=== PATIENT | female | born 1960 | race Caucasian/White ===

== ENCOUNTER 2019-01-14 18:26 | Inpatient (IN) ==
[2019-01-14] MEDS ORDERED: 0.9 % Sodium Chloride 500 ML IVC ONE (20:00)
[2019-01-14 20:39] LABS: Basophils % 0.1 %; Hematocrit 24.4 % (35.3-44.9); Hemoglobin 7.2 g/dL (11.5-15.4); Immature Granulocytes % 0.4 % (0-4); Lymphocytes # 0.5 K/mcL (0.6-4.6); Lymphocytes % 4.9 %; Mean Corpuscular HGB Conc 29.5 g/dL (31.6-35.5); Mean Corpuscular Hemoglobin 31.9 pg (28.0-33.3); Mean Platelet Volume 11.4 fL (9.4-12.4); Monocytes # 0.7 K/mcL (0.0-1.3); Monocytes % 7.5 %; Neutrophils # 8.6 K/mcL (1.6-8.9); Platelet Count 143 K/mcL (140-400); Red Blood Count 2.26 M/mcL (3.82-4.97); Red Cell Distribution Width 16.3 % (11.5-14.5); Segmented Neutrophils % 87.1 %
[2019-01-14] MEDS ORDERED: Ipratropium/Albuterol Neb 3 ML IH ONE (20:53)
[2019-01-14 21:03] LABS: Alanine Aminotransferase 18 Units/L (7-52); Albumin 3.3 g/dL (3.5-5.7); Albumin/Globulin Ratio 1.1 (1.1-2.2); Alkaline Phosphatase 82 Units/L (34-104); Aspartate Amino Transferase 65 Units/L (13-39); BUN/Creatinine Ratio 18 (6-26); Bilirubin,Direct 0.1 mg/dL (0.0-0.2); Bilirubin,Indirect 0.4 mg/dL (0.0-1.2); Bilirubin,Total 0.5 mg/dL (0.3-1.0); Blood Urea Nitrogen 14 mg/dL (8-23); Calcium 8.4 mg/dL (8.6-10.3); Carbon Dioxide 24 mEq/L (23-29); Chloride 101 mEq/L (98-107); Glucose 151 mg/dL (70-105); INR 1.2; Osmolality,Calculated 283 (280-300); Potassium 3.5 mEq/L (3.5-5.1); Prothrombin Time 13.7 Seconds (9.4-12.1); Sodium 135 mEq/L (136-145); Total Protein 6.3 g/dL (6.4-8.9); Troponin I < 0.03 ng/mL (< 0.04); eGFR For Non-African Americans > 60 (> 60)
--- NOTE | 2019-01-14 21:14 | Emergency Department Note ---
Disposition Clinical Impression: Weakness Anemia Qualifiers: Anemia type: unspecified type Qualified Code(s): D64.9 - Anemia, unspecified Fatigue Qualifiers: Fatigue type: unspecified Qualified Code(s): R53.83 - Other fatigue Disposition: Admitted As Inpatient Condition: Good Forms: ED Satisfaction Letter General Adult HPI - General Chief complaint: ED Recheck/Abnormal Lab/Rx Stated complaint: ABNORMAL LABS Time Seen by Provider: 01/14/19 19:55 Source: patient Limitations: no limitations Nursing Notes Reviewed: Yes Vital Signs Reviewed: Yes - History of Present Illness HPI Narrative: Patient with significant past medical history including diabetes, COPD on oxygen at home with a history of lung cancer in remission as well as rectal cancer reportedly in remission presenting to the emergency department for low hemoglobin and generalized weakness. Patient states the last week she began feeling weak. She has not noticed any blood within her stool. She has not had any vomiting. She is not had any abdominal pain. She has not undergone any recent chemoradiation. She has had occasional lightheadedness with feeling like she may pass out but has not had any falls and has not hit her head. Patient is on aspirin but no other blood thinners. Patient had a colonoscopy in 2018 with polyps. Pain Scale: 6 - Related Data Home Medications Medication Instructions Recorded Confirmed RX: Albuterol Neb [Proventil Neb] 2.5 mg IH Q4HR PRN 06/07/16 02/22/18 RX: Albuterol Sulfate [Albuterol 2 puff IH Q4HR PRN 06/07/16 02/22/18 Inhaler] RX: Aspirin Enteric Coated 81 mg PO DAILY 06/07/16 02/22/18 [Aspirin EC] RX: Carvedilol 3.125 mg PO BID 06/07/16 02/22/18 RX: Ergocalciferol (VITAMIN D2) 50,000 unit PO COOPER 06/07/16 02/22/18 [Vitamin D2 (50,000 UNIT)] RX: Ferrous Sulfate 325 mg PO BID 06/07/16 02/22/18 RX: Furosemide [Lasix] 20 mg PO DAILY 06/07/16 02/22/18 RX: Insulin Glargine,Hum.rec.anlog 25 unit SQ BID 06/07/16 02/22/18 [Lantus Solostar] RX: Insulin LISPRO [Humalog] 0 unit SQ TIDWM 06/07/16 02/22/18 RX: Omeprazole [PriLOSEC] 40 mg PO DAILY 06/07/16 02/22/18 RX: Potassium Citrate [Urocit-K] 10 meq PO DAILY 06/07/16 02/22/18 RX: Sertraline [Zoloft] 50 mg PO DAILY 06/07/16 02/22/18 FentaNYL PATCH [Duragesic] 50 mcg TD Q72H 02/22/18 02/22/18 Levothyroxine [Synthroid] 150 mcg PO DAILY 02/22/18 02/22/18 Lovastatin [Mevacor] 20 mg PO HS 02/22/18 02/22/18 OxyCODONE/APAP 10/325 [Percocet 1 tab PO BID PRN 02/22/18 02/22/18 10/325 MG] Pregabalin [Lyrica] 100 mg PO BID 02/22/18 02/22/18 Quetiapine Fumarate [SEROquel] 100 mg PO HS 02/22/18 02/22/18 RX: Cyclobenzaprine HCl 5 mg PO TID PRN 02/22/18 02/22/18 Roflumilast [Daliresp] 500 mcg PO DAILY 02/22/18 02/22/18 Allergies Allergy/AdvReac Type Severity Reaction Status Date / Time No Known Allergies Allergy Verified 02/22/18 07:55 All systems ED: reviewed and negative except as stated. Review of Systems: As Per HPI Constitutional: Denies: fever, chills ENT ED: Denies: congestion Cardiovascular: Denies: chest pain Respiratory: Denies: cough Gastrointestinal: Denies: abdominal pain, nausea Musculoskeletal: Denies: back pain Integumentary: Denies: rash, abrasion Endocrine: Reports: fatigue Past Medical History - Past Medical History Medical history: Reports: arthritis, cancer, COPD, diabetes, GERD, other Surgical history: Reports: appendectomy, cholecystectomy, colectomy, hysterectom y, orthopedic, other, other Psychiatric history: Reports: no psych history - Social History Smoking Status: Never smoker Smokeless Tobacco Status: No Alcohol use: Reports: none Drug use: Reports: none Physical Exam General: Well appearing, nontoxic, no acute distress Head: Normocephalic Atraumatic Eyes: PERRL, EOMI ENT: Airway patent, no stridor Neck: supple, no meningismus Chest: Lungs clear to auscultation bilateral Cardiac: Regular rate and rhythm, no murmurs, rubs or gallops Abdomen: soft, nontender, nondistended; no guarding, rebound, or tenderness to percussion : No bright red blood or dark tarry stool noted. No hemorrhoids. Musculoskeletal: Calves symmetric, nontender. Skin: No rash, normal skin tone. Neuro: Alert and Oriented to person, place, and time; No obvious focal deficit. - General Limitations: no limitations General appearance: alert, in no apparent distress Course - Reevaluation(s) Reevaluation #1: Hemoglobin of 7.2. Discussed hospitals. Will transfuse unit. Repeat hemoglobin. Discussed with patient. Patient understands need for further workup and monitoring. Agreable to stay. DuoNeb given secondary to COPD. Patient does have some associated mild wheezing. Patient states she does not feel more short of breath in usual. - Consultations Consultation #1: Discussed with hospitalist. Pt accepted. Vital Signs Temperature 99.6 F 01/14/19 19:00 Pulse Rate 85 01/14/19 19:00 Respiratory Rate 22 01/14/19 19:00 Blood Pressure 103/58 01/14/19 19:00 O2 Sat by Pulse Oximetry 79 01/14/19 19:00 Temperature 99.6 F 01/14/19 19:00 Pulse Rate 81 01/14/19 21:32 Respiratory Rate 16 01/14/19 21:32 Blood Pressure 99/45 01/14/19 21:32 O2 Sat by Pulse Oximetry 92 01/14/19 21:32 Oxygen Delivery Oxygen Delivery Room Air Medical Decision Making - Medical Records Medical records reviewed: Yes I reviewed the patient's medical records. - Lab Data Lab results reviewed: Yes I reviewed the patient's lab results. Result diagrams: 01/14/19 20:26 01/14/19 20:26 Lab Results 01/14/19 01/14/19 01/14/19 Range/Units 20:26 20:26 20:26 WBC 9.9 (4.3-11.1) K/mcL RBC 2.26 L (3.82-4.97) M/mcL Hgb 7.2 L (11.5-15.4) g/dL Hct 24.4 L (35.3-44.9) % MCV 108.0 H (83.0-100.0) fL MCH 31.9 (28.0-33.3) pg MCHC 29.5 L (31.6-35.5) g/dL RDW 16.3 H (11.5-14.5) % Plt Count 143 (140-400) K/mcL MPV 11.4 (9.4-12.4) fL Immature Gran % 0.4 (0-4) % Seg Neutrophils % 87.1 % Lymphocytes % 4.9 % Monocytes % 7.5 % Eosinophils % 0.0 % Basophils % 0.1 % Neutrophils # 8.6 (1.6-8.9) K/mcL Lymphocytes # 0.5 L (0.6-4.6) K/mcL Monocytes # 0.7 (0.0-1.3) K/mcL Eosinophils # 0.0 (0.0-0.6) K/mcL Basophils # 0.0 (0.0-0.2) K/mcL PT 13.7 H (9.4-12.1) Seconds INR 1.2 Sodium 135 L (136-145) mEq/L Potassium 3.5 (3.5-5.1) mEq/L Chloride 101 (98-107) mEq/L Carbon Dioxide 24 (23-29) mEq/L BUN 14 (8-23) mg/dL Creatinine 0.79 (0.60-1.20) mg/dL Est GFR ( Amer) > 60 (> 60) Est GFR (Non-Af Amer) > 60 (> 60) BUN/Creatinine Ratio 18 (6-26) Glucose 151 H (70-105) mg/dL Calculated Osmolality 283 (280-300) Calcium 8.4 L (8.6-10.3) mg/dL Total Bilirubin 0.5 (0.3-1.0) mg/dL Direct Bilirubin 0.1 (0.0-0.2) mg/dL Indirect Bilirubin 0.4 (0.0-1.2) mg/dL AST 65 H (13-39) Units/L ALT 18 (7-52) Units/L Alkaline Phosphatase 82 (34-104) Units/L Troponin I < 0.03 (< 0.04) ng/mL Serum Total Protein 6.3 L (6.4-8.9) g/dL Albumin 3.3 L (3.5-5.7) g/dL Globulin 3.0 (2.4-3.5) g/dL Albumin/Globulin Ratio 1.1 (1.1-2.2) Blood Type Antibody Screen Crossmatch 01/14/19 Range/Units 20:26 WBC (4.3-11.1) K/mcL RBC (3.82-4.97) M/mcL Hgb (11.5-15.4) g/dL Hct (35.3-44.9) % MCV (83.0-100.0) fL MCH (28.0-33.3) pg MCHC (31.6-35.5) g/dL RDW (11.5-14.5) % Plt Count (140-400) K/mcL MPV (9.4-12.4) fL Immature Gran % (0-4) % Seg Neutrophils % % Lymphocytes % % Monocytes % % Eosinophils % % Basophils % % Neutrophils # (1.6-8.9) K/mcL Lymphocytes # (0.6-4.6) K/mcL Monocytes # (0.0-1.3) K/mcL Eosinophils # (0.0-0.6) K/mcL Basophils # (0.0-0.2) K/mcL PT (9.4-12.1) Seconds INR Sodium (136-145) mEq/L Potassium (3.5-5.1) mEq/L Chloride (98-107) mEq/L Carbon Dioxide (23-29) mEq/L BUN (8-23) mg/dL Creatinine (0.60-1.20) mg/dL Est GFR ( Amer) (> 60) Est GFR (Non-Af Amer) (> 60) BUN/Creatinine Ratio (6-26) Glucose (70-105) mg/dL Calculated Osmolality (280-300) Calcium (8.6-10.3) mg/dL Total Bilirubin (0.3-1.0) mg/dL Direct Bilirubin (0.0-0.2) mg/dL Indirect Bilirubin (0.0-1.2) mg/dL AST (13-39) Units/L ALT (7-52) Units/L Alkaline Phosphatase (34-104) Units/L Troponin I (< 0.04) ng/mL Serum Total Protein (6.4-8.9) g/dL Albumin (3.5-5.7) g/dL Globulin (2.4-3.5) g/dL Albumin/Globulin Ratio (1.1-2.2) Blood Type A NEGATIVE Antibody Screen NEGATIVE Crossmatch See Detail
[2019-01-15] MEDS ORDERED: Naloxone 0.4 MG/ML INJ IVP PRN (03:43)
[2019-01-15] MEDS ORDERED: Ondansetron 4 MG/2 ML VIAL IVP ONE (03:54)
--- NOTE | 2019-01-15 04:13 | Internal Med History&Physical ---
<Rito Mcfadden P - Last Filed: 01/15/19 03:54> Date of Encounter: 01/15/19 Time of Encounter: 03:15 Internal Medicine - H&P: HPI Chief complaint: Weakness, Abnormal Labs Admitted From: Home Plans for Post Hospital Care: Home History of present illness: Ms. Hicks is a 58 year old female with past medical history significant for hypertension, hyperlipidemia, CHF, COPD, diabetes, GERD, lung cancer in r emission, colon cancer in remission, anxiety, and depression who presents for low hemoglobin per PCP and home health nurse, generalized weakness, lightheadedness, productive cough with green sputum, nausea, chills, and achiness for past four days. Patient is unsure if she has had a fever at home as she does not have a thermometer. Reports PCP advised her of low hemoglobin around 2 weeks ago but she did not seek treatment, blood was redrawn by home health nurse recently and advised to come to ER due to persistent low hemoglobin. PCP and home health hemoglobins were reported at 6.7 and 6.9 per patient. Denies chest pain, shortness of breath worse than baseline, abdominal pain, blood loss, vomiting, bowel or bladder changes. Last bowel movement was today and reportedly normal per patient. Denies any tobacco, alcohol, or drug use. No recent travel or medication changes. Reports recent ill contacts with respiratory symptoms at a birthday alliance party. Wears 2lpm nasal canula continuously at home. Checks blood sugars regularly at home and reports they have been averaging in the 110's. Follows regularly with PCP about every 3 months with last visit around 2 weeks ago. Also follows regularly with pain management monthly for chronic pain related to arthritis and SI joint dysfunction with last normal follow-up last month. Also follows with pulmonary every 3 months with last normal follow up last month as well. Has history of colon cancer with colectomy and lung cancer with lobectomy along with radiation and chemotherapy, both in remission for 9 years. Last colonoscopy was completed in April 2018 where 3 polyps were removed, continues to follow up with GI for continued monito ring. Past Med Surg Social Fam HX - Past Medical History Medical history: arthritis, cancer, CHF, COPD, diabetes, GERD, hyperlipidemia, hypertension, other Additional medical history: rectal cancer, lung cancer Psychiatric history: anxiety, depression - Past Surgical History Surgical History: appendectomy, cholecystectomy, colectomy, hysterectomy, orthopedic, other, other Additional surgical history: bladder tuck,hernia repair,l shoulder rotator - Social History Smoking Status: Never smoker Smokeless Tobacco Status: No Alcohol use: none Drug use: none - Family History Mother Living Status: Age at : 43 Hx Family Cancer: Yes (metastatic) Father Living Status: Age at : 46 Hx Family Cancer: Yes (metastatic) Internal Medicine - H&P: Meds Albuterol Neb [Proventil Neb] 2.5 mg IH Q4HR PRN 06/07/16 [History] Albuterol Sulfate [Albuterol Inhaler] 2 puff IH Q4HR PRN 06/07/16 [History] Aspirin Enteric Coated [Aspirin EC] 81 mg PO DAILY 06/07/16 [History] Carvedilol 3.125 mg PO BID 06/07/16 [History] Ergocalciferol (VITAMIN D2) [Vitamin D2 (50,000 UNIT)] 50,000 unit PO COOPER 06/07/16 [History] Ferrous Sulfate 325 mg PO BID 06/07/16 [History] Furosemide [Lasix] 20 mg PO DAILY 06/07/16 [History] Insulin Glargine,Hum.rec.anlog [Lantus Solostar] 25 unit SQ BID 06/07/16 [History] Insulin LISPRO [Humalog] 0 unit SQ TIDWM 06/07/16 [History] Omeprazole [PriLOSEC] 40 mg PO DAILY 06/07/16 [History] Potassium Citrate [Urocit-K] 10 meq PO DAILY 06/07/16 [History] Sertraline [Zoloft] 50 mg PO DAILY 06/07/16 [History] Cyclobenzaprine HCl 5 mg PO TID PRN 02/22/18 [History] FentaNYL PATCH [Duragesic] 50 mcg TD Q72H 02/22/18 [History] Levothyroxine [Synthroid] 150 mcg PO DAILY 02/22/18 [History] Lovastatin [Mevacor] 20 mg PO HS 02/22/18 [History] OxyCODONE/APAP 10/325 [Percocet 10/325 MG] 1 tab PO BID PRN 02/22/18 [History] Pregabalin [Lyrica] 100 mg PO BID 02/22/18 [History] Quetiapine Fumarate [SEROquel] 100 mg PO HS 02/22/18 [History] Roflumilast [Daliresp] 500 mcg PO DAILY 02/22/18 [History] Atorvastatin [Lipitor] 40 mg PO HS 01/15/19 [History] Allergy/AdvReac Type Severity Reaction Status Date / Time No Known Allergies Allergy Verified 02/22/18 07:55 All Systems PM: A 10-system review of systems was performed and is negative for pertinent findings except as documented above in the HPI. - Constitutional Vitals: Temp Pulse Resp BP Pulse Ox 99.3 F 80 15 112/67 90 01/15/19 03:05 01/15/19 03:05 01/15/19 03:05 01/15/19 03:05 01/15/19 03:05 Exam: General: Alert and oriented. Skin:Normal color, no rash, no lesions. HEENT:Pupils equal, round and reactive. Cardiovascular:Heart sounds distant, no rubs, murmurs or gallops. No JVD. Pulse regular. Lungs:Breath sounds decreased, wheezes and crackles noted. Abdomen:Soft, non-tender, no rigidity. Extremities:No deformity, no edema or tenderness, no joint swelling or clubbing. Neurological:Normal cognition and motor skills. Pulses:Carotid and radial pulses normal +2. Rest of the physical exam is non contributory. Internal Med - H&P Results - Labs CBC & Chem 7: 01/14/19 20:26 01/14/19 20:26 Labs: Short CBC 01/14/19 Range/Units 20:26 WBC 9.9 (4.3-11.1) K/mcL Hgb 7.2 L (11.5-15.4) g/dL Hct 24.4 L (35.3-44.9) % Plt Count 143 (140-400) K/mcL Neutrophils # 8.6 (1.6-8.9) K/mcL BMP 01/14/19 20:26 Sodium 135 L Potassium 3.5 Chloride 101 Carbon Dioxide 24 BUN 14 Creatinine 0.79 Glucose 151 H Calcium 8.4 L Cardiac Enzymes 01/14/19 Range/Units 20:26 Troponin I < 0.03 (< 0.04) ng/mL Liver Function 01/14/19 Range/Units 20:26 Total Bilirubin 0.5 (0.3-1.0) mg/dL Direct Bilirubin 0.1 (0.0-0.2) mg/dL AST 65 H (13-39) Units/L ALT 18 (7-52) Units/L Alkaline Phosphatase 82 (34-104) Units/L Albumin 3.3 L (3.5-5.7) g/dL - Assessment and plan (1) Anemia Current Visit: Yes Status: Acute Assessment and plan: Acute on chronic, hemoglobin currently 7.2 from 9-10 baseline. 1 unit PRBC's ordered. Repeat labs with folate and B12 ordered. Occult stool pending. Continuous cardiac monitoring. Qualifiers: Anemia type: unspecified type Qualified Code(s): D64.9 - Anemia, unspecified (2) Lightheadedness Current Visit: Yes Status: Acute Assessment and plan: Plan as above. Consider further workup if not resolved with improvement in anemia. (3) COPD exacerbation Current Visit: Yes Status: Acute Assessment and plan: Scheduled duonebs ordered. Levaquin PO daily ordered. Prednisone daily ordered. Continuous home 02 at 2lpm nasal canula. Flu swab ordered. (4) Elevated serum aspartate aminotransferase level Current Visit: Yes Status: Acute Assessment and plan: Repeat LFT's ordered. No abdominal pain, alcohol, or drug use. (5) Diabetes mellitus Current Visit: Yes Status: Chronic Assessment and plan: Sliding scale insulin ordered. Accucheck ACHS. Hold home medications. Qualifiers: Diabetes mellitus type: type 2 Diabetes mellitus manager intermediate insulin use: with senior living use Diabetes mellitus complication status: without complication Qualified Code(s): E11.9 - Type 2 diabetes mellitus without complications; Z79.4 - ocean transportation intermediary (current) use of insulin (6) Generalized weakness Current Visit: Yes Status: Acute Assessment and plan: Plan as above. Consider further workup if not resolved with improvement in anemia. - Time Spent With Patient Total time spent is greater than 50% in coordination of care (as documented) at patient's floor/unit and/or counseling patient: <Otis Heath - Last Filed: 01/15/19 05:31> Date of Encounter: 01/15/19 Time of Encounter: 04:35 - Constitutional Constitutional: chills, fatigue, fever(s), no night sweats - EENT Eyes: no change in vision Nose, mouth and throat: nasal congestion, sinus pressure - Cardiovascular Cardiovascular ROS IM: no chest pain - Respiratory Respiratory: cough, dyspnea, chest congestion, change in phlegm color - Gastrointestinal Gastrointestinal: no abdominal pain, no coffee ground emesis, no melena - Genitourinary Genitourinary: no dysuria, no flank pain, no hematuria - Musculoskeletal Musculoskeletal ROS IM: arthralgias - Integumentary Integumentary IM: no rash, no jaundice - Neurological Neurological ROS: no dizziness, no focal weakness, no frequent falls, no headache(s) - Psychiatric Psychiatric: no anxiety, no depression - Constitutional Vitals: Temp Pulse Resp BP Pulse Ox 99.3 F 80 15 112/67 90 01/15/19 03:05 01/15/19 03:05 01/15/19 03:05 01/15/19 03:05 01/15/19 03:05 General appearance: Present: cooperative, A&O X 3, pleasant, no acute distress - Neck Neck exam general surgery: Present: supple - Respiratory Respiratory exam: Present: prolonged expiratory phase, respiratory distress (mild), rhonchi, wheezes. Absent: accessory muscle use, chest wall tenderness, rales - Cardiovascular Cardiovascular exam: Present: distant heart sounds, RRR, +S1, +S2. Absent: diastolic murmur, systolic murmur - GI/Abdominal GI/Abdominal exam: Present: normal bowel sounds, soft. Absent: guarding, hepatomegaly, mass, rebound, splenomegaly, tenderness - Extremities Exam Extremities exam: Present: full ROM, warm, radial pulses palpable and symmetrical. Absent: calf tenderness, pedal edema, tenderness - Back Exam Back exam: Absent: CVA tenderness (L), CVA tenderness (R) - Neurological Exam Neurological exam: Present: alert, oriented X3, no focal deficits - Skin Skin exam: Present: dry, intact, warm. Absent: rash Internal Med - H&P Results - Labs CBC & Chem 7: 01/14/19 20:26 01/14/19 20:26 Labs: Short CBC 01/14/19 Range/Units 20:26 WBC 9.9 (4.3-11.1) K/mcL Hgb 7.2 L (11.5-15.4) g/dL Hct 24.4 L (35.3-44.9) % Plt Count 143 (140-400) K/mcL Neutrophils # 8.6 (1.6-8.9) K/mcL BMP 01/14/19 20:26 Sodium 135 L Potassium 3.5 Chloride 101 Carbon Dioxide 24 BUN 14 Creatinine 0.79 Glucose 151 H Calcium 8.4 L Cardiac Enzymes 01/14/19 Range/Units 20:26 Troponin I < 0.03 (< 0.04) ng/mL Liver Function 01/14/19 Range/Units 20:26 Total Bilirubin 0.5 (0.3-1.0) mg/dL Direct Bilirubin 0.1 (0.0-0.2) mg/dL AST 65 H (13-39) Units/L ALT 18 (7-52) Units/L Alkaline Phosphatase 82 (34-104) Units/L Albumin 3.3 L (3.5-5.7) g/dL - Assessment and plan (1) Anemia Current Visit: Yes Status: Acute Qualifiers: Anemia type: unspecified type Qualified Code(s): D64.9 - Anemia, unspecified (2) Elevated serum aspartate aminotransferase level Current Visit: Yes Status: Acute (3) COPD exacerbation Current Visit: Yes Status: Acute (4) Diabetes mellitus Current Visit: Yes Status: Chronic Qualifiers: Diabetes mellitus type: type 2 Diabetes mellitus senior living insulin use: with senior living use Diabetes mellitus complication status: without complication Qualified Code(s): E11.9 - Type 2 diabetes mellitus without complications; Z79.4 - ocean transportation intermediary (current) use of insulin (5) Lightheadedness Current Visit: Yes Status: Acute (6) Generalized weakness Current Visit: Yes Status: Acute - Time Spent With Patient Total time spent is greater than 50% in coordination of care (as documented) at patient's floor/unit and/or counseling patient: - Attending Attestation I discussed the patient [place], past medical history, review of systems, lab data, and exam findings with Oscar Mcfadden CNP. I then saw and examined patient independently as well. Patient denies any history of blood loss. She been chronically anemic. However, she is now more symptomatic and her hemoglobin is much lower than her baseline. Upon further history and exam, she does appear to be in acute exacerbation of COPD. This was not conveyed to me by the ER staff. Furthermore, there is no imaging of her chest. She does report subjective fevers and chills. She has had ill contacts with her granddaughter at a recent birthday alliance party. Because of such history and exam findings, I did order an x-ray of her chest and influenza testing as well. I agree with antibiotics, steroids, and scheduled aerosols. Meanwhile, she did finish one unit of blood transfusion and we will monitor hemoglobin closely. If she has any evidence of blood loss, she will likely need upper and lower endoscopy. Other than my comments and exam findings noted above, I agree with Oscar Mcfadden's assessment and plan.
[2019-01-15] MEDS ORDERED: D5% in Water 1,000 ML IVC PRN (04:23)
[2019-01-15] MEDS ORDERED: Dextrose Gel 15 GM/37.5 ML TUBE PO PRN ×2 (04:23)
[2019-01-15] MEDS ORDERED: Dextrose 4 GM Chewable Tablets PO PRN ×2 (04:23)
[2019-01-15] MEDS ORDERED: *HR* Dextrose 50 % in Water (Syg) 50 ML SYRINGE IVP PRN (04:23)
[2019-01-15 06:01] LABS: Basophils % 0.2 %; Hematocrit 27.3 % (35.3-44.9); Immature Granulocytes % 0.4 % (0-4); Lymphocytes # 0.6 K/mcL (0.6-4.6); Lymphocytes % 7.5 %; Mean Corpuscular HGB Conc 29.3 g/dL (31.6-35.5); Mean Corpuscular Hemoglobin 30.7 pg (28.0-33.3); Mean Corpuscular Volume 104.6 fL (83.0-100.0); Mean Platelet Volume 11.7 fL (9.4-12.4); Monocytes # 0.7 K/mcL (0.0-1.3); Monocytes % 7.9 %; Neutrophils # 7.2 K/mcL (1.6-8.9); Platelet Count 151 K/mcL (140-400); Red Blood Count 2.61 M/mcL (3.82-4.97); Red Cell Distribution Width 18.6 % (11.5-14.5)
[2019-01-15] MEDS: Ipratropium/Albuterol Neb 3 ML IH SCH ×4 (06:09→21:42)
[2019-01-15 06:22] LABS: Alanine Aminotransferase 15 Units/L (7-52); Albumin 3.2 g/dL (3.5-5.7); Albumin/Globulin Ratio 1.2 (1.1-2.2); Alkaline Phosphatase 79 Units/L (34-104); Aspartate Amino Transferase 61 Units/L (13-39); BUN/Creatinine Ratio 17 (6-26); Bilirubin,Indirect 0.4 mg/dL (0.0-1.2); Bilirubin,Total 0.4 mg/dL (0.3-1.0); Blood Urea Nitrogen 12 mg/dL (8-23); Calcium 8.4 mg/dL (8.6-10.3); Carbon Dioxide 24 mEq/L (23-29); Chloride 104 mEq/L (98-107); Globulin 2.7 g/dL (2.4-3.5); Glucose 149 mg/dL (70-105); Osmolality,Calculated 285 (280-300); Potassium 3.4 mEq/L (3.5-5.1); Sodium 136 mEq/L (136-145); Total Protein 5.9 g/dL (6.4-8.9); eGFR For Non-African Americans > 60 (> 60)
[2019-01-15 06:44] LABS: Folate 12.1 ng/mL (3.0-16.0)
[2019-01-15 07:28] LABS: Influenza A PCR Positive (Negative); Influenza B PCR Negative (Negative); Resp. Syncytial Virus PCR Negative (Negative)
[2019-01-15] MEDS: Insulin LISPRO 300 UNITS/3 ML VIAL SQ SCH ×4 (07:46→20:28)
[2019-01-15] MEDS ORDERED: Albuterol 2.5 MG/3 ML NEBULIZER IH PRN (08:35)
[2019-01-15] MEDS ORDERED: *HR* FentaNYL PATCH 50 MCG PATCH TD SCH (08:45)
[2019-01-15] MEDS: *HR* Promethazine 25 MG/ML VIAL IVP PRN (09:16)
[2019-01-15] MEDS: Potassium Citrate 10 MEQ TABLET.ER PO SCH (09:18)
[2019-01-15] MEDS: levoFLOXacin 500 MG TABLET PO SCH (09:18)
[2019-01-15] MEDS: predniSONE 20 MG TABLET PO SCH (09:18)
[2019-01-15] MEDS: Pregabalin 50 MG CAPSULE PO SCH ×2 (09:19→20:33)
[2019-01-15] MEDS: Aspirin Enteric Coated 81 MG Tablet PO SCH (09:19)
[2019-01-15] MEDS: Furosemide 20 MG TABLET PO SCH (09:25)
[2019-01-15] MEDS ORDERED: 0.9 % Sodium Chloride 500 ML IVC ONE (09:29)
[2019-01-15] MEDS: Roflumilast [Daliresp] 500 MCG PO SCH (09:48)
--- NOTE | 2019-01-15 11:48 | Event Note ---
Date of Encounter: 01/15/19 Time of Encounter: 11:47 Patient reported nausea and vomiting earlier this morning. Improved after she received Phenergan. Patient has undergone colonoscopy 6 months back and was found to have multiple polyps. She does not want another colonoscopy at this time. Agreeable to doing upper GI endoscopy. Consult to gastroenterology for evaluation and recommendations. Influenza A+. Started patient on Tamiflu. Keep nothing by mouth for now pending GI evaluation.
[2019-01-15] MEDS: Cyanocobalamin (B-12) 1,000 MCG/ML VIAL SQ SCH (17:23)
[2019-01-15] MEDS: *HR* OxyCODONE/APAP 10/325 TABLET PO PRN (17:30)
[2019-01-16] MEDS: Ipratropium/Albuterol Neb 3 ML IH SCH ×4 (03:42→22:28)
[2019-01-16 05:24] LABS: Basophils % 0.3 %; Hemoglobin 7.8 g/dL (11.5-15.4); Immature Granulocytes % 0.3 % (0-4); Lymphocytes # 0.4 K/mcL (0.6-4.6); Lymphocytes % 12.5 %; Mean Corpuscular HGB Conc 28.9 g/dL (31.6-35.5); Mean Corpuscular Hemoglobin 31.1 pg (28.0-33.3); Mean Corpuscular Volume 107.6 fL (83.0-100.0); Mean Platelet Volume 11.3 fL (9.4-12.4); Monocytes # 0.3 K/mcL (0.0-1.3); Monocytes % 10.3 %; Neutrophils # 2.4 K/mcL (1.6-8.9); Platelet Count 134 K/mcL (140-400); Red Blood Count 2.51 M/mcL (3.82-4.97); Segmented Neutrophils % 76.6 %
[2019-01-16 05:44] LABS: BUN/Creatinine Ratio 19 (6-26); Blood Urea Nitrogen 12 mg/dL (8-23); Calcium 8.4 mg/dL (8.6-10.3); Carbon Dioxide 27 mEq/L (23-29); Chloride 106 mEq/L (98-107); Glucose 117 mg/dL (70-105); Osmolality,Calculated 293 (280-300); Potassium 3.6 mEq/L (3.5-5.1); Sodium 141 mEq/L (136-145); eGFR For Non-African Americans > 60 (> 60)
[2019-01-16 05:46] LABS: % Iron Saturation 4 % (15-50); Iron 15 mcg/dL (50-170); Transferrin 256 mg/dL (203-362)
[2019-01-16 05:57] LABS: Ferritin 81 ng/mL (10-120)
[2019-01-16 06:04] LABS: Anisocytosis 1+ (Not Present)
[2019-01-16 06:05] LABS: Microcytosis Present (Not Present); Platelet Estimate Decreased (Normal)
[2019-01-16] MEDS: Insulin LISPRO 300 UNITS/3 ML VIAL SQ SCH ×4 (07:46→21:35)
[2019-01-16] MEDS ORDERED: Sodium Ferric Gluconat/Sucrose 250 MG in 0.9 % Sodium Chloride 100 ML IVPB ONE (08:42)
[2019-01-16] MEDS: Potassium Citrate 10 MEQ TABLET.ER PO SCH (08:48)
[2019-01-16] MEDS: Pregabalin 50 MG CAPSULE PO SCH ×2 (08:48→21:30)
[2019-01-16] MEDS: predniSONE 20 MG TABLET PO SCH (08:48)
[2019-01-16] MEDS: levoFLOXacin 500 MG TABLET PO SCH (08:49)
[2019-01-16] MEDS: Aspirin Enteric Coated 81 MG Tablet PO SCH (08:49)
[2019-01-16] MEDS: Cyanocobalamin (B-12) 1,000 MCG/ML VIAL SQ SCH (08:49)
[2019-01-16] MEDS: Furosemide 20 MG TABLET PO SCH (08:50)
[2019-01-16] MEDS: Roflumilast [Daliresp] 500 MCG PO SCH (08:50)
[2019-01-16] MEDS: *HR* Promethazine 25 MG/ML VIAL IVP PRN (10:17)
--- NOTE | 2019-01-16 11:55 | Internal Med Progress Note ---
Hospitalist Progress Note - Encounter Date of Encounter: 01/16/19 Time of Encounter: 10:40 - Subjective Interval History: Patient is feeling much better today. She is able to breathe better. She denies any chest pain or palpitations. No wheezing. No nausea or vomiting. - Exam Vitals: Temp Pulse Resp BP Pulse Ox 98.1 F 68 16 97/68 97 01/16/19 10:29 01/16/19 10:29 01/16/19 10:29 01/16/19 10:29 01/16/19 10:29 Exam: General: Patient is alert, no acute distress, oriented x 3 ENT: Mucous membranes moist Respiratory: Mild bilateral wheezing. Cardiovascular: Regular rate and rhythm. s1 and s2 normal No clicks, rubs, gallops, or murmurs. No pedal edema Abdomen: Abdomen is soft, nontender. Bowel sounds are present Musculoskeletal: Spontaneously moving all extremities Skin: warm, dry, intact. Neuro: Alert oriented x 3 normal cranial nerves, no focal deficits - Assessment and Plan (1) Anemia Current Visit: Yes Status: Acute Assessment and Plan: Hemoglobin 7.8 today. GI consult. Plan for EGD and colonoscopy tomorrow. Continue PPI patient. Patient has both B12 and iron deficiency. Started on B12 shots. Also will infuse IV IRON (2) Elevated serum aspartate aminotransferase level Current Visit: Yes Status: Acute (3) COPD exacerbation Current Visit: Yes Status: Acute Assessment and Plan: Due to influenza A. Continue bronchodilators, steroids, O2 supplementation as needed. (4) Diabetes mellitus Current Visit: Yes Status: Chronic Assessment and Plan: Blood sugar 108 this morning. diabetic diet when patient is able to eat. (5) Lightheadedness Current Visit: Yes Status: Acute Assessment and Plan: Improved (6) Generalized weakness Current Visit: Yes Status: Acute Assessment and Plan: Patient feels much better today. Encouraged ambulation (7) Influenza A Current Visit: Yes Status: Acute Assessment and Plan: Continue Tamiflu. - Time Spent with Patient Total time spent is greater than 50% in coordination of care (as documented) at patient's floor/unit and/or counseling patient: Internal Medicine: Result - Labs CBC & Chem 7: 01/16/19 04:40 01/16/19 04:40 Labs: Short CBC 01/16/19 Range/Units 04:40 WBC 3.1 L D (4.3-11.1) K/mcL Hgb 7.8 L (11.5-15.4) g/dL Hct 27.0 L (35.3-44.9) % Plt Count 134 L (140-400) K/mcL Neutrophils # 2.4 (1.6-8.9) K/mcL BMP 01/16/19 04:40 Sodium 141 Potassium 3.6 Chloride 106 Carbon Dioxide 27 BUN 12 Creatinine 0.63 Glucose 117 H Calcium 8.4 L - ABG Interpretation ABG results: PT/INR, D-dimer PT 13.7 Seconds (9.4-12.1) H 01/14/19 20:26 Consult Discharge Plan - Plan Referrals: Genesis Savage, AKASH [Primary Care Provider] - (1) Anemia Qualifiers: Anemia type: other cause Other causes of anemia: other cause, not classified Qualified Code(s): D64.89 - Other specified anemias (4) Diabetes mellitus Qualifiers: Diabetes mellitus type: type 2 Diabetes mellitus supervisor force adjustment insulin use: with supervisor force adjustment use Diabetes mellitus complication status: without complication Qualified Code(s): E11.9 - Type 2 diabetes mellitus without complications; Z79.4 - typesetting machine operator/tender (current) use of insulin
--- NOTE | 2019-01-16 12:07 | Gastroenterology Consult Note ---
<Hubert Solorzano - Last Filed: 01/16/19 12:12> Date of Encounter: 01/16/19 Time of Encounter: 10:10 - Time Spent With Patient Total time spent is greater than 50% in coordination of care (as documented) at patient's floor/unit and/or counseling patient: GI History of Present Illness - Data of Consult Patient: known to practice within the last 3 years Consult date: 01/16/19 Requesting Physician: Rosa Yuen MD - Consult Narrative Reason for consult: Anemia History of present illness: Ms. Hicks is a 58 year old female with PMHx of lung cancer, colon cancer, s/p right hemicolectomy, HTN, HLD, CHF, COPD, DM, GERD who presented for evaluation of anemia. Reports PCP advised her of low hemoglobin around 2 weeks ago but she did not seek treatment, blood was redrawn by home health nurse recently and advised to come to ER due to persistent low hemoglobin. Denies chest pain, shortness of breath worse than baseline, abdominal pain, nausea, vomiting, hematemesis, melena. She does admit to [facility] with wiping when having frequent BMs. On admission Hgb 7.2, B 12 230 and today Hgb 7.8 with MCV 107.6, iron 15, ferritin 81. Last colonoscopy with multiple tubular adenomas and recommendation to repeat in 6 months. Patient reports feeling a "lump" in her rectum recently. Procedures: Colonoscopy 05/16/2018 Dr. Penaloza: Ten tubular adenomas ranging from 2- 30 mm and many medium nonbleeding polyps in the entire colon, recommended repeat in 6 months. Colonoscopy 02/22/2018 Dr. Penaloza: 4 tubular adenomas ranging from 15-30 mm, recommended repeat one month. Colonoscopy 06/07/2016 Dr. Guan: Anal stenosis. NSAIDs: ASA Anticoagulation: None A/P 1. Anemia: On admission Hgb 7.2, B-12 230. Today Hgb 7.8 with MCV 107.6, iron 15, ferritin 81. Continue to monitor CBC and transfuse PRBC as needed. Recommend B-12 injections weekly x 4 weeks, than monthly. Plan for EGD and colonoscopy tomorrow. Clear liquid diet today, no red or purple. NPO at midnight. If not clear by 6 AM, give 2 tap water enemas. 2. Tubular adenoma of colon: Colonoscopy 05/16/2018 Dr. Penaloza: Ten tubular adenomas ranging from 2-30 mm and many medium nonbleeding polyps in the entire colon, recommended repeat in 6 months. Colonoscopy 02/22/2018 Dr. Penaloza: 4 tubular adenomas ranging from 15-30 mm, recommended repeat one month. Recommend repeating colonoscopy tomorrow. Patient is agreeable to completing colonoscopy tomorrow. 3. History colon cancer Past Med Surg Social Fam HX - Past Medical History Medical history: arthritis, cancer, CHF, COPD, diabetes, GERD, hyperlipidemia, hypertension, other Additional medical history: rectal cancer, lung cancer Psychiatric history: anxiety, depression - Past Surgical History Surgical History: appendectomy, cholecystectomy, colectomy, hysterectomy, orthopedic, other, other Additional surgical history: bladder tuck,hernia repair,l shoulder rotator - Social History Smoking Status: Never smoker Smokeless Tobacco Status: No Alcohol use: none Drug use: none - Family History Mother Living Status: Age at : 43 Hx Family Cancer: Yes (metastatic) Father Living Status: Age at : 46 Hx Family Cancer: Yes (metastatic) - Gastrointestinal Gastrointestinal: Present: as per HPI - Constitutional Constitutional: as per HPI - EENT Eyes: as per HPI Ears: Present: as per HPI Nose, mouth and throat: Present: as per HPI - Cardiovascular Cardiovascular ROS: Present: as per HPI - Respiratory Respiratory IM: Present: as per HPI - Genitourinary Genitourinary: Absent: change in color, Urinary frequency - Neurological ROS Neurological GI: Present: as per HPI - Hematologic/Lymphatic Hematologic/Lymphatic pediatric: Present: as per HPI - Musculoskeletal Musculoskeletal ROS GI: Present: as per HPI - Integumentary Integumentary GI: Present: as per HPI - Psychiatric ROS Psychiatric GI: Present: as per HPI - Endocrine Endocrine IM: Present: as per HPI - Constitutional Vitals: Temp Pulse Resp BP Pulse Ox 98.1 F 68 16 97/68 97 01/16/19 10:29 01/16/19 10:29 01/16/19 10:29 01/16/19 10:29 01/16/19 10:29 General appearance: Present: cooperative, A&O X 3, no acute distress, answers qu estions appropriately - Head Head exam: Present: atraumatic, normocephalic - Eye Eye exam: Present: normal appearance, sclera anicteric - ENT ENT exam: Present: mucous membranes dry - Neck Neck exam general surgery: Present: normal inspection, trachea midline - Respiratory Respiratory exam: Present: decreased breath sounds, rhonchi, wheezes - Cardiovascular Cardiovascular exam: Present: RRR, +S1, +S2 - GI/Abdominal GI/Abdominal exam: Present: soft, no peritoneal signs. Absent: distended, firm, guarding, tenderness - Rectal Rectal exam: Present: deferred - Extremities Exam Extremities exam: Present: warm - Neurological Exam Neurological exam: Present: no focal deficits - Psychiatric Psychiatric exam: Present: normal affect, normal mood - Skin Skin exam: Present: dry, intact, normal color, warm Results - Labs CBC & Chem 7: 01/16/19 04:40 01/16/19 04:40 Labs: Last Result Calcium 8.4 mg/dL (8.6-10.3) L 01/16/19 04:40 Iron 15 mcg/dL (50-170) L 01/16/19 04:40 % Saturation 4 % (15-50) L 01/16/19 04:40 Transferrin 256 mg/dL (203-362) 01/16/19 04:40 Ferritin 81 ng/mL (10-120) 01/16/19 04:40 Troponin I < 0.03 ng/mL (< 0.04) 01/14/19 20:26 Vitamin B12 230 pg/mL (250-1100) L 01/15/19 05:20 Folate 12.1 ng/mL (3.0-16.0) 01/15/19 05:20 Entire Visit Hgb 7.8 g/dL (11.5-15.4) L 01/16/19 04:40 Hct 27.0 % (35.3-44.9) L 01/16/19 04:40 PT 13.7 Seconds (9.4-12.1) H 01/14/19 20:26 Ferritin 81 ng/mL (10-120) 01/16/19 04:40 Total Bilirubin 0.4 mg/dL (0.3-1.0) 01/15/19 05:20 AST 61 Units/L (13-39) H 01/15/19 05:20 ALT 15 Units/L (7-52) 01/15/19 05:20 Folate 12.1 ng/mL (3.0-16.0) 01/15/19 05:20 - ABG ABG results: PT/INR, D-dimer PT 13.7 Seconds (9.4-12.1) H 01/14/19 20:26 Consult Discharge Plan - Plan Referrals: Genesis Savage, MOTORCYCLE REPAIR [employer]OP SUPERVISOR [Primary Care Provider] - <Alejandro Penalozaed - Last Filed: 01/16/19 16:20> Date of Encounter: 01/16/19 - Time Spent With Patient Total time spent is greater than 50% in coordination of care (as documented) at patient's floor/unit and/or counseling patient: GI History of Present Illness - Data of Consult Requesting Physician: Rosa Yuen MD - Consult Narrative History of present illness: Ms. Hicks is a 58 year old female - Constitutional Vitals: Temp Pulse Resp BP Pulse Ox 98.4 F 73 16 98/64 96 01/16/19 14:26 01/16/19 14:26 01/16/19 14:26 01/16/19 14:26 01/16/19 14:26 Results - Labs CBC & Chem 7: 01/16/19 04:40 01/16/19 04:40 Labs: Last Result Calcium 8.4 mg/dL (8.6-10.3) L 01/16/19 04:40 Iron 15 mcg/dL (50-170) L 01/16/19 04:40 % Saturation 4 % (15-50) L 01/16/19 04:40 Transferrin 256 mg/dL (203-362) 01/16/19 04:40 Ferritin 81 ng/mL (10-120) 01/16/19 04:40 Troponin I < 0.03 ng/mL (< 0.04) 01/14/19 20:26 Vitamin B12 230 pg/mL (250-1100) L 01/15/19 05:20 Folate 12.1 ng/mL (3.0-16.0) 01/15/19 05:20 Entire Visit Hgb 7.8 g/dL (11.5-15.4) L 01/16/19 04:40 Hct 27.0 % (35.3-44.9) L 01/16/19 04:40 PT 13.7 Seconds (9.4-12.1) H 01/14/19 20:26 Ferritin 81 ng/mL (10-120) 01/16/19 04:40 Total Bilirubin 0.4 mg/dL (0.3-1.0) 01/15/19 05:20 AST 61 Units/L (13-39) H 01/15/19 05:20 ALT 15 Units/L (7-52) 01/15/19 05:20 Folate 12.1 ng/mL (3.0-16.0) 01/15/19 05:20 - ABG ABG results: PT/INR, D-dimer PT 13.7 Seconds (9.4-12.1) H 01/14/19 20:26 - Attending Attestation I have personally performed a face to face evaluation on this patient. I have reviewed and agree with the care plan. History and Exam by me shows: Patient seen. Denies any bleeding per rectum on examination abdomen is soft no focal tenderness. Assessment: Patient with anemia severe microcytic along with severe B12 deficiency. #2 history of colon polyps multiple that were removed about 8 months ago. Recommendation: EGD to rule out gastric causes for her anemia and colonoscopy
--- NOTE | 2019-01-16 18:22 | Anesthesia Evaluation PreOp ---
Addendum entered and electronically signed by Dann Zaidi CRNA 01/17/19 08:07: According to MAR, patient not currently receiving beta richard during hospital stay. Beta Richard administration not indicated at this time because pre- procedure vital signs are 110/56, HR 66 NSR. Pt confirms NPO >8hrs. No interval changes from that documented below. Original Note: Date of Encounter: 01/16/19 Time of Encounter: 18:20 - Past History Planned Operation: EGD/Colon Cardiac History: CHF, HTN, Hyperlipidemia Pulmonary History: Other (Lung Ca [in remission since 2009] s/p chemo/radiation, RULobectomy) PILL PACKER History: Other (Anxiety/Depression) Other Medical History: Diabetes Type II, Thyroid (Hypothyroid), GERD, Other (Colon Ca s/p Colectomy in remission since 2009) Anesthesia History: No Prior Anesthetic Complications, Past Anesthesia (Appy, Ashley, R-Colectomy 2006, Hyster, Bladder Tuck, Hernia Repair, Rotator Cuff Repair, L-Total Hip 09/2018) Alcohol Use: none Drug use: none Medications and Allergies Albuterol Neb [Proventil Neb] 2.5 mg IH Q4HR PRN 06/07/16 [History] Albuterol Sulfate [Albuterol Inhaler] 2 puff IH Q4HR PRN 06/07/16 [History] Aspirin Enteric Coated [Aspirin EC] 81 mg PO DAILY 06/07/16 [History] Carvedilol 3.125 mg PO BID 06/07/16 [History] Ferrous Sulfate 325 mg PO BID 06/07/16 [History] Furosemide [Lasix] 20 mg PO DAILY 06/07/16 [History] Insulin Glargine,Hum.rec.anlog [Lantus Solostar] 30 - 80 unit SQ HS 06/07/16 [History] Omeprazole [PriLOSEC] 40 mg PO BID 06/07/16 [History] Potassium Citrate [Urocit-K] 10 meq PO DAILY 06/07/16 [History] Sertraline [Zoloft] 100 mg PO DAILY 06/07/16 [History] FentaNYL PATCH [Duragesic] 100 mcg TD Q72H PRN 02/22/18 [History] Pregabalin [Lyrica] 100 mg PO BID 02/22/18 [History] Quetiapine Fumarate [SEROquel] 100 mg PO HS 02/22/18 [History] Roflumilast [Daliresp] 500 mcg PO DAILY 02/22/18 [History] Atorvastatin [Lipitor] 40 mg PO HS 01/15/19 [History] Levothyroxine Sodium [Euthyrox] 175 mcg PO QAM 01/16/19 [History] OxyCODONE Immed Rel [Roxicodone 30 MG] 30 mg PO BID PRN 01/16/19 [History] Allergy/AdvReac Type Severity Reaction Status Date / Time No Known Allergies Allergy Verified 02/22/18 07:55 - Meds/Allergy Pre-op Review Medications Reviewed: Yes Allergies Reviewed: Yes Beta Blockers on Current Med List: Yes (Carvedilol) Anesthesia Results - Labs 01/16/19 04:40 01/16/19 04:40 Laboratory Results Impressions Chest X-Ray 01/15/19 05:26 IMPRESSION: Question of COPD. Chronic right-sided volume loss, stable. Chronic atelectasis and scarring at the right lung apex, likely related to history of right upper lobectomy, stable. Discoid atelectasis at the left lung base. D/ / Tejinder Mathew MD / Tejinder Mathew MD Interpreting Provider: Tejinder Mathew MD - Imaging EKG: image reviewed (01/14/2019 - 84bpm SR, LAE, low voltage, probable old anteroseptal infarct, minimial ST depression inferior leads) Anesthesia Exam Vital Signs Temp Pulse Resp BP Pulse Ox 01/16/19 14:26 98.4 F 73 16 98/64 96 01/16/19 10:29 98.1 F 68 16 97/68 97 01/16/19 09:56 16 95 01/16/19 08:44 98 F 63 16 99/60 91 01/16/19 07:58 98 F 76 16 96/50 92 01/16/19 07:34 97.9 F 64 16 95/54 93 01/16/19 03:43 16 94 01/16/19 03:21 97.7 F 68 16 102/64 94 01/15/19 22:25 97.9 F 66 16 98/53 93 01/15/19 21:42 16 95 01/15/19 20:01 97.8 F 65 16 99/58 92 Intake and Output 01/16/19 01/16/19 01/16/19 07:59 15:59 23:59 Output Total 150 / 150 Balance -150 / -150 Output: Urine 150 / 150 Other: Stool Size Small Stool Consistency loose Stool Color Brown # Voids 1 Blood Glucose* 108 181 228 Height: 5'6" Weight: 174# BMI = 28 - HEENT Pupil (Motor): Pupils equal, EOMI Mallampati: II Teeth: Edentulous Oral Opening: Greater than 3 - PILL PACKER LOC: Oriented PILL PACKER Motor: Normal RUE, Normal LUE, Normal RLE, Normal LLE, Normal Face PILL PACKER Sensory: Normal: RUE, LUE, RLE, LLE, Face - Cardiac Rhythm: Regular Murmur: None - Pulmonary Breath Sounds: bilateral Clear Respiratory Effort: Symmetrical Anesthesia Assess/Plan ASA Score: 3 (COPD, CHF, HTN, Hx Colon Ca, Hx Lung Ca) Level of consciousness: Cooperative, Oriented, Tranquil Anesthetic Plan: MAC Monitoring Plan: Standard Monitors Recovery Plan: PACU Anes Supervising Prov Stmt: Pt seen/evaluated, R&B discussed, questions answered and consent obtained. Kevin Hall MD
[2019-01-17 03:39] LABS: Hematocrit 27.4 % (35.3-44.9); Hemoglobin 8.1 g/dL (11.5-15.4); Immature Granulocytes % 0.3 % (0-4); Lymphocytes # 0.5 K/mcL (0.6-4.6); Lymphocytes % 15.9 %; Mean Corpuscular HGB Conc 29.6 g/dL (31.6-35.5); Mean Platelet Volume 10.9 fL (9.4-12.4); Monocytes # 0.4 K/mcL (0.0-1.3); Monocytes % 13.7 %; Neutrophils # 2.2 K/mcL (1.6-8.9); Platelet Count 142 K/mcL (140-400); Red Blood Count 2.61 M/mcL (3.82-4.97); Red Cell Distribution Width 17.1 % (11.5-14.5); Segmented Neutrophils % 70.1 %
[2019-01-17 03:57] LABS: BUN/Creatinine Ratio 13 (6-26); Blood Urea Nitrogen 9 mg/dL (8-23); Calcium 8.5 mg/dL (8.6-10.3); Carbon Dioxide 27 mEq/L (23-29); Chloride 107 mEq/L (98-107); Glucose 105 mg/dL (70-105); Osmolality,Calculated 291 (280-300); Sodium 141 mEq/L (136-145); eGFR For Non-African Americans > 60 (> 60)
[2019-01-17] MEDS: Ipratropium/Albuterol Neb 3 ML IH SCH ×2 (04:32→10:20)
[2019-01-17] MEDS: Insulin LISPRO 300 UNITS/3 ML VIAL SQ SCH ×2 (07:26→11:48)
[2019-01-17] MEDS ORDERED: Lidocaine -MPF 2% 2 ML VIAL ONE ×2 (07:29)
[2019-01-17] MEDS ORDERED: *HR* Propofol 200 MG/20 ML VIAL IVP ONE ×2 (07:29→08:29)
[2019-01-17] MEDS ORDERED: *HR* Phenylephrine 10 MG/ML VIAL ONE (07:38)
[2019-01-17] MEDS ORDERED: *HR* EPINEPHrine 1 MG/10 ML SYRINGE ONE ×2 (08:24)
[2019-01-17] MEDS ORDERED: Esmolol 100 MG/10 ML VIAL IVP ONE (08:32)
[2019-01-17] MEDS ORDERED: *HR* Metoprolol 5 MG/5 ML VIAL IVP ONE (08:49)
--- NOTE | 2019-01-17 10:03 | Anesthesia Evaluation Post Op ---
Date of Encounter: 01/17/19 Time of Encounter: 09:35 - Vital Signs Vital Signs: 103/54, HR 74, SpO2 100%, RR 14 - Lungs Lungs: Clear Ascult./Percussion - Airway Airway: Non-obstructed - Cardiovascular Regular Rate - Mental Status Mental Status: Asleep with brisk response to light stimulation - Pain Pain Scale: 0 Pain Scale used: Numeric (1 - 10) - Nausea Vomiting Nausea Vomiting: Not Present - Hydration Hydration: NPO, Has not voided - Discharge PostOp Status: Transfer Patient to floor
[2019-01-17] MEDS: *HR* OxyCODONE/APAP 10/325 TABLET PO PRN (10:35)
[2019-01-17 11:35] VITALS: BP 91/60
[2019-01-17] MEDS: Aspirin Enteric Coated 81 MG Tablet PO SCH (11:44)
[2019-01-17] MEDS: Furosemide 20 MG TABLET PO SCH (11:45)
[2019-01-17] MEDS: predniSONE 20 MG TABLET PO SCH (11:46)
[2019-01-17] MEDS: levoFLOXacin 500 MG TABLET PO SCH (11:46)
[2019-01-17] MEDS: Pregabalin 50 MG CAPSULE PO SCH (11:46)
[2019-01-17] MEDS: Roflumilast [Daliresp] 500 MCG PO SCH (11:46)
[2019-01-17] MEDS: Potassium Citrate 10 MEQ TABLET.ER PO SCH (11:47)
[2019-01-17] MEDS: Cyanocobalamin (B-12) 1,000 MCG/ML VIAL SQ SCH (11:47)
--- NOTE | 2019-01-17 13:43 | Discharge Summary ---
- NOTES TO OUTPATIENT PROVIDER Notes to Outpatient Provider: Patient with a history of hypertension, hyperlipidemia, colon cancer, COPD, lung cancer was hospitalized here after presenting to the ER with complaints of generalized weakness and lightheadedness and productive cough with greenish sputum. She was positive for influenza A and was placed on Tamiflu. She also had a low hemoglobin level of 7.2 on admission. She received 1 unit PRBC transfusion her vitamin B12 and iron levels were low. She was evaluated by GI and recommended EGD and colonoscopy given her history of multiple polyps. She underwent this procedure yesterday and was found to have multiple rectal polyps which were removed. Patient also had a gastroesophageal polyp removed. She related to follow up on biopsy results GI. Her hemoglobin levels have been stable since her transfusion. She will be discharged today and will complete treatment course for her influenza. Orders not resulted at time of discharge: Pending orders 01/16/19 04:40 Culture,Blood [BC] AM 0400 01/17/19 09:20 Surgical Pathology [PTH] Routine Date of Encounter: 01/17/19 Time of Encounter: 13:50 - Discharge Diagnosis (1) Anemia Priority: Primary Status: Acute Qualifiers: Anemia type: other cause Other causes of anemia: other cause, not classified Qualified Code(s): D64.89 - Other specified anemias (2) Influenza A Priority: Secondary Status: Acute (3) Elevated serum aspartate aminotransferase level Priority: Secondary Status: Acute (4) COPD exacerbation Priority: Secondary Status: Acute (5) Diabetes mellitus Priority: Secondary Status: Chronic Qualifiers: Diabetes mellitus type: type 2 Diabetes mellitus on call pharmacy technician insulin use: with snf use Diabetes mellitus complication status: without complication Qualified Code(s): E11.9 - Type 2 diabetes mellitus without complications; Z79.4 - [facility] (current) use of insulin (6) Lightheadedness Priority: Secondary Status: Acute (7) Generalized weakness Priority: Secondary Status: Acute Hospital course: Ms. Hicks is a 58 year old female Patient with a history of hypertension, hyperlipidemia, colon cancer, COPD, lung cancer was hospitalized here after presenting to the ER with complaints of generalized weakness and lightheadedness and productive cough with greenish sputum. She was positive for influenza A and was placed on Tamiflu. She also had a low hemoglobin level of 7.2 on admission. She received 1 unit PRBC transfusion her vitamin B12 and iron levels were low. She was evaluated by GI and recommended EGD and colonoscopy given her history of multiple polyps. She underwent this procedure yesterday and was found to have multiple rectal polyps which were removed. Patient also had a gastroesophageal polyp removed. She related to follow up on biopsy results GI. Her hemoglobin levels have been stable since her transfusion. She will be discharged today and will complete treatment course for her influenza. Discharge discussed with: patient, family, data center consultant - Time Spent with Patient Total time spent providing and/or coordinating discharge services: Greater than 30 minutes (32 min) - Discharge Medications Prescriptions: New Oseltamivir [Tamiflu] 75 mg PO BID #5 capsule predniSONE [PredniSONE] 40 mg PO DAILY #4 tablet Cyanocobalamin (Vitamin B-12) [Vitamin B-12] 1,000 mcg SL DAILY #30 tab.subl Continue Omeprazole [PriLOSEC] 40 mg PO BID Albuterol Sulfate [Albuterol Inhaler] 2 puff IH Q4HR PRN PRN Reason: Shortness Of Breath Albuterol Neb [Proventil Neb] 2.5 mg IH Q4HR PRN PRN Reason: Wheezing Aspirin Enteric Coated [Aspirin EC] 81 mg PO DAILY Sertraline [Zoloft] 100 mg PO DAILY Furosemide [Lasix] 20 mg PO DAILY Potassium Citrate [Urocit-K] 10 meq PO DAILY Insulin Glargine,Hum.rec.anlog [Lantus Solostar] 30 - 80 unit SQ HS Ferrous Sulfate 325 mg PO BID FentaNYL PATCH [Duragesic] 100 mcg TD Q72H PRN PRN Reason: SEE NOTE Pregabalin [Lyrica] 100 mg PO BID Quetiapine Fumarate [Seroquel] 100 mg PO HS Roflumilast [Daliresp] 500 mcg PO DAILY Atorvastatin [Lipitor] 40 mg PO HS OxyCODONE Immed Rel [Roxicodone 30 MG] 30 mg PO BID PRN PRN Reason: Pain Levothyroxine Sodium [Euthyrox] 175 mcg PO QAM Changed Carvedilol 3.125 mg PO DAILY #30 tablet Home Medications: Albuterol Neb [Proventil Neb] 2.5 mg IH Q4HR PRN 06/07/16 [History] Albuterol Sulfate [Albuterol Inhaler] 2 puff IH Q4HR PRN 06/07/16 [History] Aspirin Enteric Coated [Aspirin EC] 81 mg PO DAILY 06/07/16 [History] Ferrous Sulfate 325 mg PO BID 06/07/16 [History] Furosemide [Lasix] 20 mg PO DAILY 06/07/16 [History] Insulin Glargine,Hum.rec.anlog [Lantus Solostar] 30 - 80 unit SQ HS 06/07/16 [History] Omeprazole [PriLOSEC] 40 mg PO BID 06/07/16 [History] Potassium Citrate [Urocit-K] 10 meq PO DAILY 06/07/16 [History] Sertraline [Zoloft] 100 mg PO DAILY 06/07/16 [History] FentaNYL PATCH [Duragesic] 100 mcg TD Q72H PRN 02/22/18 [History] Pregabalin [Lyrica] 100 mg PO BID 02/22/18 [History] Quetiapine Fumarate [Seroquel] 100 mg PO HS 02/22/18 [History] Roflumilast [Daliresp] 500 mcg PO DAILY 02/22/18 [History] Atorvastatin [Lipitor] 40 mg PO HS 01/15/19 [History] Levothyroxine Sodium [Euthyrox] 175 mcg PO QAM 01/16/19 [History] OxyCODONE Immed Rel [Roxicodone 30 MG] 30 mg PO BID PRN 01/16/19 [History] Carvedilol 3.125 mg PO DAILY #30 tablet 01/17/19 [Rx] Cyanocobalamin (Vitamin B-12) [Vitamin B-12] 1,000 mcg SL DAILY #30 tab.subl 01/17/19 [Rx] Oseltamivir [Tamiflu] 75 mg PO BID #5 capsule 01/17/19 [Rx] predniSONE [PredniSONE] 40 mg PO DAILY #4 tablet 01/17/19 [Rx] Allergies/Adverse Reactions: Allergy/AdvReac Type Severity Reaction Status Date / Time No Known Allergies Allergy Verified 02/22/18 07:55 Date of admission: 01/16/19 16:54 Primary care physician: KRISTIAN Porter Consults: 01/15/19 11:02 Consult to Gastroenterology [CONS] Routine Consulting Provider: Gastroenterology Jasmina Reason for Consult: Anemia/ N/V Time Notified: 11:02 Call Completed: Yes Discharging clinician: Rosa Yuen Anticipated date of discharge: 01/17/19 - Constitutional Vitals: Temp Pulse Resp BP Pulse Ox 97.3 F L 64 15 91/60 93 01/17/19 11:34 01/17/19 11:34 01/17/19 11:34 01/17/19 11:34 01/17/19 11:34 General appearance: Present: cooperative, A&O X 3, pleasant, no acute distress, answers questions appropriately Exam: . - Respiratory Respiratory exam: Present: wheezes. Absent: accessory muscle use, rales, rhonchi - Cardiovascular Cardiovascular exam: Present: RRR, +S1, +S2. Absent: diastolic murmur, gallop, rubs, systolic murmur - GI/Abdominal GI/Abdominal exam: Present: normal bowel sounds, soft, no peritoneal signs. Absent: distended, tenderness - Patient Status Disposition: Home, Self-Care Condition: Good Functional capacity at discharge: independent ambulation Overall status at discharge: patient is back to baseline - Discharge Instructions Instructions: Diabetes Mellitus Type 2 in Adults (DC), Chronic Obstructive Pulmonary Disease (DC), Anemia (GEN) Follow Up With: Genesis Savage CNP [Primary Care Provider] - (in 1-2 weeks) Additional Instructions: Follow-up appointments: If there is not an appointment listed below, please call your physician and schedule a follow-up appointment. If you have congestive heart failure and your symptoms return, make an appointment with your physician. Medication List: Carry an up to date list of medications you are taking at all time. We have given you an updated medication list including any new medications that you have been prescribed. Please provide that list to your primary provider Symptoms: If your condition changes or you experience any of the following symptoms, notify your physician immediately: Unusual or worsening pain, fever, persistent nausea and vomiting, bleeding, increase in swelling (especially in your legs), sudden weight gain, extreme dizziness, chest pain, increased drainage or redness from a wound or incision. Go to the emergency department if you experience a problem with breathing. Weights: If you have a history of swelling or shortness of breath, weigh yourself daily and notify your physician if you have a weight gain of two or more pounds in one day or 5 or more pounds in a week. If you experience any of the warning signs for stroke: Sudden numbness or weakness of the face, arm or leg; especially on one side of the body, sudden confusion, trouble speaking or understanding, sudden trouble seeing in one or both eyes, sudden trouble walking, dizziness, loss of balance or coordination, sudden sever headache with no cause; Call 911 or go to the emergency room. Stroke is a medical emergency. Some risk factors for stroke: Age, cigarette smoking, diabetes, excessive alcohol consumption, family history, high blood pressure, overweight, physical inactivity, prior stroke, heart attac k, diagnosis of carotid artery stenosis or other artery disease. If you smoke, STOP: Smoking or tobacco use significantly increases your risk of heart and lung disease. Your chance of disease greatly increases if you continue to smoke. For more information, call the [place] tobacco quit line for smoking cessation 5-365-ZEZZ-NOW ( ) - Diet and Activity Activity: wear oxygen at all times Diet: advance to your usual diet, diabetic diet
--- NOTE | 2019-01-18 20:09 | Electrocardiograph Report ---
[address] [address] Test Date: 2019-01-14 Pat Name: Megan Hicks Department: [id number] Room: [facility] Gender: F Sales Promotion Representative: : 1960 Requested By: Les Perez Order Number: [id number] Reading MD: Morgan Dimas Measurements Intervals [place] Rate: 84 P: 73 VT: 154 QRS: 53 QRSD: 86 T: 3 QT: 372 QTc: 440 Interpretive Statements Sinus rhythm Low voltage, precordial leads Probable anteroseptal infarct, old Minimal ST depression, inferior leads Electronically Signed On 01-18-2019 20:07:47 EST by Morgan Dimas
== END 2019-01-17 15:59 | disposition home or self-care (01) | DRG 812 ==
LOC: 3NENU 18:26 → EMEROOARM 18:26 → SUATTDRO 21:57 → 3NENU 22:29
PROVIDERS: ADMIT Pediatrics; ATTEND Internal Medicine